=== PATIENT | female | born 1985 | race Caucasian/White ===

== ENCOUNTER 2016-10-09 03:28 | Emergency (ER) | payer OTHER ==
[~2016-10-09 03:28] MED LIST: ADV200 PO; VIC PO
[2016-10-09 04:10] VITALS: BP 110/80
== END 2016-10-09 04:10 | disposition home or self-care (01) ==
LOC: ED 03:28
DX: N39.0 Urinary tract infection, site not specified (principal); B37.9 Candidiasis, unspecified

== ENCOUNTER 2018-08-04 06:46 | Emergency (ER) | payer OTHER ==
[~2018-08-04] VITALS: Ht 167.6 cm; Wt 77.6 kg
[2018-08-04 06:48] VITALS: Ht 167.6 cm; Wt 77.6 kg
[2018-08-04 07:43] LABS: BASOPHIL % 0.5 % (0-2); PLATELET COUNT 241 x10^3mcL (130-400)
[2018-08-04 08:10] LABS: CALCIUM 8.6 mg/dL (8.5-10.1); CARBON DIOXIDE 27.8 mmol/L (21-32); CHLORIDE SERUM 105 mmol/L (98-107); CREATININE SERUM 0.8 mg/dL (0.6-1.0); GFR1 > 60 mL/min; GLUCOSE SERUM 92 mg/dL (74-106); SODIUM SERUM 141 mmol/L (136-145)
[2018-08-04 08:18] LABS: CK-MB 0.5 ng/mL (0-3.6)
[2018-08-04 08:28] LABS: ALBUMIN 3.9 g/dL (3.4-5.0); ALKALINE PHOSPHATASE 90 U/L (46-116); ALT/SGPT 25 U/L (14-59); AST/SGOT 13 U/L (15-37); BILIRUBIN TOTAL 0.39 mg/dL (0.20-1.00); C REACTIVE PROTEIN 0.5 mg/dL (<=0.9); TOTAL PROTEIN, SERUM 7.6 g/dL (6.4-8.2)
[2018-08-04 08:49] LABS: UA SPECIFIC GRAVITY 1.015 (1.005-1.035); microscopic required? YES; urine erythrocyte 3+ (NEGATIVE)
[2018-08-04 09:15] LABS: T3 TOTAL 1.14 ng/mL
[2018-08-04 10:35] LABS: FREE T4 1.06 ng/dL (0.76-1.46); FREE THYROXINE INDEX 3.3 ug/dL (1.4-4.5); T4(THYROXINE) 9.4 ug/dL (4.7-13.3)
[2018-08-04 10:42] VITALS: BP 108/76
== END 2018-08-04 10:42 | disposition home or self-care (01) ==
LOC: ED 06:46
PROVIDERS: Specialist
DX: N12 Tubulo-interstitial nephritis, not specified as acute or chronic (principal); Z98.51 Tubal ligation status
CPT/HCPCS: 84439; J0696; J1885; J2405; J3010; J7030